=== PATIENT | female | born 1990 | race Hispanic/Latino ===

== ENCOUNTER 2018-07-30 13:56 | Outpatient (CLI) | payer OTHER ==
--- NOTE | 2018-07-30 17:42 | ULT ---
ULTRASOUND OBSTETRICAL COMPLETE: 07/30/18 HISTORY: 28-year-old female for evaluation of anatomy and cervical length. FINDINGS: number: Devlin. lie: Transverse, with head to maternal left. Maternal cervix: 5 cm and closed. Placenta: Anterior. No placenta previa. Amniotic fluid volume: NUNU 15.5 cm. heart rate: 143 bpm The following anatomy is visualized, with no evidence of anomalies: Head, lateral ventricles, cerebellum, spine, upper limbs, lower limbs, four chamber heart, umbilical cord, cord insertion, stomach, kidneys, and bladder. Nose and lips not well visualized because of early stage of and position. biometry: Head circumference (HC): 16.5 cm 19w 1d Biparietal diameter (BPD): 4.5 cm 19w 4d Abdominal circumference (AC): 14.3 cm 19w 5d Femur length (FL): 2.9 cm 18w 5d Average ultrasound age (AUA): 19w 1d Estimated date of delivery (EVONNE): 12/23/2018. Last menstrual period (LMP): 03/12/2018. Gestational age by LMP: 20w 0d Estimated weight (EFW): 282 g +/- 42 g (0 lb., 10 oz +/- 1 oz). IMPRESSION: 1. Live second trimester intrauterine gestation. 2. Estimated gestational age of 19 weeks, 1 day. 3. Transverse lie. 4. Maternal cervical length 5 cm. 5. No anatomical abnormalities. jn [] POS: TPC
== END 2018-07-30 13:57 | disposition home or self-care (01) ==
LOC: SCSULT 13:56
PROVIDERS: ATTEND Family Medicine
DX: O09.892 Supervision of other high risk pregnancies, second trimester (principal); Z3A.19 19 weeks gestation of pregnancy; O32.2XX0 Maternal care for transverse and oblique lie, not applicable or unspecified
CPT/HCPCS: 76805

== ENCOUNTER 2018-12-08 19:15 | Inpatient (IN) | payer MEDICAID, OTHER, SELFPAY ==
[~2018-12-08 19:15] MED LIST: Bupivacaine 0.25% HCL 30 ML VIAL ONE; ePHEDrine/0.9% NaCl/PF SYRINGE 50 mg/10 ml ONE
[2018-12-08] MEDS ORDERED: Ibuprofen 800 MG TAB PO PRN (20:54)
[2018-12-08] MEDS ORDERED: Methylergonovine 0.2 MG/ML VIAL IM PRN (20:54)
[2018-12-08] MEDS ORDERED: NS / Oxytocin 40 units/1000ml 1,000 ML IV PRN (20:54)
[2018-12-08] MEDS ORDERED: HYDROcodone/Acetaminophen 5/325 mg Tablet PO PRN (20:54)
[2018-12-08] MEDS ORDERED: Promethazine HCl 25 MG/ML VIAL IM PRN (20:54)
[2018-12-08] MEDS ORDERED: hydrALAZINE 20 MG/ML VIAL SLOW IVP PRN (20:54)
[2018-12-08] MEDS ORDERED: Misoprostol 200 MCG TAB PR PRN (20:54)
[2018-12-08] MEDS ORDERED: Ondansetron PF 4 MG/2 ML Vial IVP PRN (20:54)
[2018-12-08] MEDS ORDERED: Diphenoxylate HCl/Atropine Tablet PO PRN (20:54)
[2018-12-08] MEDS ORDERED: Lidocaine 1% (PF) 30 ML VIAL SC PRN (20:54)
[2018-12-08] MEDS ORDERED: NS w/ Oxytocin 10 units 500 ML IV SCH ×2 (20:54)
[2018-12-08] MEDS ORDERED: Butorphanol Tartrate 1 MG/ML VIAL SLOW IVP PRN (20:54)
[2018-12-08] MEDS ORDERED: Carboprost 250 MCG/ML AMP IM PRN (20:54)
[2018-12-08 21:18] VITALS: BMI 30.9
[2018-12-08] MEDS: Lactated Ringer's 1,000 ML IV SCH (21:27)
[2018-12-08] MEDS ORDERED: Penicillin G Potassium 5 MILL.UNITS in Sodium Chloride 0.9% 100 ML IVPB SCH (21:30)
[2018-12-08] MEDS ORDERED: FLU VACC QS2019-20(6MOS UP)/PF 60 MCG/0.5 ML SYRINGE IM ONE (21:45)
[2018-12-08 21:47] LABS: Hemoglobin 11.8 g/dL (12.0-16.0); Mean Corpuscular HGB CONC 35.5 g/dL (32.0-36.0); Mean Corpuscular Hemoglobin 31.8 pg (27.0-31.0); Mean Corpuscular Volume 89.6 fL (78.0-98.0); Mean Platelet Volume 9.6 fL (7.4-10.4); Platelet Count 193 thou/uL (130-400); RBC Distribution Width 11.9 % (11.5-14.5); Red Blood Cell (RBC) Count 3.69 mill/uL (4.20-5.40); White Blood Cell (WBC) Count 8.6 thou/uL (4.8-10.8)
[2018-12-08] MEDS: Misoprostol 100 MCG TAB PO SCH (21:48)
[2018-12-08 22:22] LABS: Syphilis Antibody Nonreactive (Nonreactive); Syphilis Antibody Index 0.04 S/CO (<1.00 Non-Reactive)
[2018-12-08 22:55] LABS: HBSAg Index 0.32 S/CO (0-0.99); Hep B Surf Ag Non-Reactive S/CO (NonReactive)
[2018-12-09] MEDS: Penicillin G 2.5 MILL.units 2.5 MILL.UNITS in Premix Bag 1 BAG IVPB SCH ×4 (01:52→16:40)
[2018-12-09] MEDS: Misoprostol 100 MCG TAB PO SCH ×2 (01:56→12:16)
[2018-12-09] MEDS: Lactated Ringer's 1,000 ML IV SCH ×3 (05:57→14:27)
[2018-12-09] MEDS ORDERED: Fentanyl 4 mcg/Bup 0.1% Cadd 100 ML ONE (07:28)
[2018-12-09] MEDS ORDERED: Ondansetron PF 4 MG/2 ML Vial IVP PRN ×2 (08:14→16:40)
[2018-12-09] MEDS ORDERED: Promethazine HCl 25 MG/ML VIAL IM PRN (08:14)
[2018-12-09] MEDS ORDERED: diphenhydrAMINE 50 MG/ML VIAL IVP PRN (08:14)
[2018-12-09] MEDS ORDERED: ePHEDrine/0.9% NaCl/PF SYRINGE 50 mg/10 ml SLOW IVP PRN (08:14)
[2018-12-09] MEDS ORDERED: Naloxone HCl 0.4 mg/ml Vial IVP PRN ×2 (08:14)
[2018-12-09] MEDS ORDERED: Lactated Ringer's 500 ML IV PRN (08:14)
[2018-12-09] MEDS ORDERED: Acetaminophen 325 MG TAB PO PRN (08:14)
[2018-12-09] MEDS ORDERED: Communication Order-Pharmacy FS SCH (08:15)
[2018-12-09] MEDS ORDERED: Fentanyl 4 mcg/Bupivacaine 0.1% Cassette 100 ML EPIDURAL SCH (08:15)
[2018-12-09] MEDS ORDERED: Lidocaine 1% (PF) 30 ML VIAL ONE (09:28)
[2018-12-09] MEDS ORDERED: NS / Oxytocin 40 units/1000ml 1,000 ML ONE (09:28)
[2018-12-09] MEDS ORDERED: hydrALAZINE 20 MG/ML VIAL SLOW IVP PRN (16:40)
[2018-12-09] MEDS ORDERED: Lanolin Ointment 7 GM TUBE TOP PRN (16:40)
[2018-12-09] MEDS ORDERED: HYDROcodone/Acetaminophen 5/325 mg Tablet PO PRN ×2 (16:40)
[2018-12-09] MEDS ORDERED: Milk Of Magnesia 30 ML UDCUP PO PRN (16:40)
[2018-12-09] MEDS ORDERED: Adacel (T-DAP) 0.5 ML SYRINGE IM ONE (16:40)
[2018-12-09] MEDS ORDERED: Bisacodyl 10 MG SUPP PR PRN (16:40)
[2018-12-09] MEDS ORDERED: diphenhydrAMINE 25 MG CAP PO PRN (16:40)
[2018-12-09] MEDS ORDERED: NS / Oxytocin 40 units/1000ml 1,000 ML IV SCH (16:45)
[2018-12-09] MEDS: Ibuprofen 800 MG TAB PO SCH (22:30)
[2018-12-09] MEDS: Docusate Calcium (SURFAK) 240 MG CAP PO SCH (22:30)
[2018-12-09] MEDS: Ferrous Sulfate 325 MG TAB PO SCH (22:31)
[2018-12-10] MEDS: Ibuprofen 800 MG TAB PO SCH ×2 (05:11→13:58)
[2018-12-10 06:15] LABS: Hemoglobin 11.6 g/dL (12.0-16.0); Mean Corpuscular HGB CONC 35.2 g/dL (32.0-36.0); Mean Corpuscular Hemoglobin 31.4 pg (27.0-31.0); Mean Corpuscular Volume 89.3 fL (78.0-98.0); Mean Platelet Volume 9.2 fL (7.4-10.4); Platelet Count 150 thou/uL (130-400); Red Blood Cell (RBC) Count 3.69 mill/uL (4.20-5.40); White Blood Cell (WBC) Count 8.4 thou/uL (4.8-10.8)
[2018-12-10] MEDS ORDERED: Prenatal Vitamin 1 TAB PO SCH (09:00)
[2018-12-10] MEDS: Ferrous Sulfate 325 MG TAB PO SCH (09:25)
[2018-12-10] MEDS: Docusate Calcium (SURFAK) 240 MG CAP PO SCH (09:56)
[2018-12-10 12:18] VITALS: BP 97/51; TEMP 98.5
== END 2018-12-10 17:20 | disposition home or self-care (01) | DRG 807 ==
LOC: L&D 20:22 → 3SW 12-09 17:44
PROVIDERS: ADMIT Family Medicine; ATTEND Family Medicine
PROC: 3E02340 Introduction of Influenza Vaccine into Muscle, Percutaneous Approach (ICD-10-PCS; 2018-12-08)
PROC: 10E0XZZ Delivery of Products of Conception, External Approach (ICD-10-PCS; principal; 2018-12-09)
PROC: 10907ZC Drainage of Amniotic Fluid, Therapeutic from Products of Conception, Via Natural or Artificial Opening (ICD-10-PCS; 2018-12-09)
PROC: 3E0P7VZ Introduction of Hormone into Female Reproductive, Via Natural or Artificial Opening (ICD-10-PCS; 2018-12-09)
PROC: 3E033VJ Introduction of Other Hormone into Peripheral Vein, Percutaneous Approach (ICD-10-PCS; 2018-12-09)
DX: O99.824 Streptococcus B carrier state complicating childbirth (principal); Z37.0 Single live birth; Z3A.39 39 weeks gestation of pregnancy; Z23 Encounter for immunization
CPT/HCPCS: 36415; 51702; 85027; 86780; 86850; 86900; 86901; 87340; J2001; J2540; J2590; J3490; S0020